=== PATIENT | male | born 1965 | race Caucasian/White ===

== ENCOUNTER 2018-12-29 05:46 | Observation (INO) | payer OTHER ==
[2018-12-29] MEDS ORDERED: ASPIRIN 81 MG CHEWABLE TAB PO ONE (05:50)
[2018-12-29] MEDS ORDERED: NS 1,000 ML IV ONE (05:50)
--- NOTE | 2018-12-29 05:50 | EDPHY ---
H & P Stated Complaint: CP Time Seen by Provider: 12/29/18 05:50 HPI/ROS: HPI CHIEF COMPLAINT: Chest pain. HISTORY OF PRESENT ILLNESS: Patient is a 53-year-old male, otherwise healthy denies any significant medical history except for remote history of hypertension with briefly on blood pressure medication for 6 months but there is no longer on this. Denies any other significant medical history reports that on Sunday he developed some muscle aches, joint pain, shoulder pain, chills , flu-like illness. He did not get his flu shot this year. However he developed chest pain left-sided describes it as a burning and pressure sensation in 1 focal area started 11:00 p.m. Last night it is now 6:00 a.m.. He states that it briefly went away however returned at 2:00 a.m. This been persistent throughout the night. He denies any productive cough or pleuritic pain. Past Medical History: Denies significant medical history except for hypertension Past Surgical History: Denies significant surgical history except for nasal surgery Social History: Denies drugs alcohol tobacco Family History: Unsure about family history as he is adopted. ROS REVIEW OF SYSTEMS: 10 Systems were reviewed and negative with the exception of the elements mentioned in the history of present illness. Exam Constitutional triage nursing summary reviewed, vital signs reviewed, awake/ alert. Eyes normal conjunctivae and sclera, EOMI, PERRLA. HENT normal inspection, atraumatic, moist mucus membranes, no epistaxis, neck supple/ no meningismus, no raccoon eyes. Respiratory clear to auscultation bilaterally, normal breath sounds, no respiratory distress, no wheezing. Cardiovascular rate normal, regular rhythm, no murmur, no edema, distal pulses normal. Gastrointestinal soft, non-tender, no rebound, no guarding, normal bowel sounds, no distension, no pulsatile mass. Genitourinary no CVA tenderness. Musculoskeletal no midline vertebral tenderness, full range of motion, no calf swelling, no tenderness of extremities, no meningismus, good pulses, neurovascularly intact. Skin pink, warm, & dry, no rash, skin atraumatic. Neurologic awake, alert and oriented x 3, AAOx3, moves all 4 extremities equally, motor intact, sensory intact, CN II-XII intact, normal cerebellar, normal vision, normal speech. Psychiatric normal mood/affect. Heme/Lymph/Immune no lymphadenopathy. Differential Diagnosis: Differential diagnosis includes but is not limited to: ACS, atypical chest pain, pneumothorax, pneumonia, pulmonary embolism, aortic dissection, congestive heart failure, tumor, musculoskeletal pain, esophageal pain, GERD, peptic ulcer disease, pancreatitis Medical Decision Making: Plan for this patient IV establishment IV fluid bolus , EKG, chest x-ray, troponin, basic labs, influenza and re-evaluate. Re-evaluation: EKG interpretation by me on record in [facility] system. Impression time of EKG 6:00 a.m. This normal sinus rhythm rate of 84 without any signs of acute ischemia. Negative influenza. Troponin noted be negative. EKG is nonischemic. Chest x-ray reviewed unremarkable. 0733: Patient received full-dose aspirin at this time and his chest pain is improved. He did have some mild pain that went down his left arm. I do not have a great explanation for his chest pain is EKG is nonischemic and his troponin is negative. However he does have a positive D-dimer We discussed CT angiogram and risk versus benefit of this. Given his chest pain and positive D-dimer will proceed with CT angiogram of the chest. Additionally his family history is unknown as he is adopted. His cardiovascular risk factors include hypertension, his age, and unknown Family history Given his left-sided chest discomfort and radiation down his left arm plan will be for hospital admission for further cardiac evaluation. Patient is currently pending a CT angiogram of the chest. 0741AM: Hospitalist service consult and they agree to admit. Dr. Chiu Patient updated, agrees for admission, and further cardiac testing. Also Agrees for CTA. 0741AM: CP free at this time. Did have some chest pain, left sided down left upper arm, now resolved. Plan for further evaluation of this. CT angiogram pending. Dr. Higginbotham to follow up CTA. Source: Patient - Personal History Current Tetanus Diphtheria and Acellular Pertussis (TDAP): No - Medical/Surgical History Hx Asthma: No Hx Chronic Respiratory Disease: No Hx Diabetes: No Hx Cardiac Disease: No Hx Renal Disease: No Hx Cirrhosis: No Hx Alcoholism: No Hx HIV/AIDS: No Hx Splenectomy or Spleen Trauma: No Other PMH: denies - Social History Smoking Status: Never smoked Constitutional: Initial Vital Signs Temperature (C) 37.4 C 12/29/18 05:47 Heart Rate 96 12/29/18 05:47 Respiratory Rate 16 12/29/18 05:47 Blood Pressure 138/80 H 12/29/18 05:47 O2 Sat (%) 96 12/29/18 05:47 O2 Delivery Mode Room Air Allergies/Adverse Reactions: No Known Allergies Allergy (Unverified 12/29/18 05:47) Home Medications: Medication Instructions Recorded Aspirin EC [Aspirin EC 81 mg (*)] 81 mg PO DAILY tab 12/29/18 Medical Decision Making - Data Points Laboratory Results: Laboratory Results 12/29/18 06:00 12/29/18 06:00 Medications Given: Discontinued Medications Aspirin (Aspirin) 324 mg PO EDNOW ONE Stop: 12/29/18 05:51 Last Admin: 12/29/18 06:03 Dose: 324 mg Sodium Chloride (Ns) 1,000 mls @ 0 mls/hr IV EDNOW ONE; Wide Open PRN Reason: Protocol Stop: 12/29/18 05:51 Last Admin: 12/29/18 06:03 Dose: 1,000 mls Point of Care Test Results: Chemistry 12/29/18 05:56 POC Troponin I 0.00 ng/mL ng/mL (0.00-0.08) Departure - Departure Disposition: [facility] Inpatient Acute Clinical Impression: Chest pain Qualifiers: Chest pain type: unspecified Qualified Code(s): R07.9 - Chest pain, unspecified Condition: Fair
[2018-12-29 06:12] LABS: PLATELET COUNT 269 10^3/uL (150-400)
[2018-12-29] MEDS ORDERED: IOPAMIDOL (ISOVUE 370) 100 ML BTL IV ONE (07:33)
--- NOTE | 2018-12-29 11:23 | PDCARST ---
CAR Stress Test Results Type of Stress Test: Martell protocol stress testing Indication: Chest pain Description of Procedure: Consent for procedure was signed, and heart auscultated (no murmur noted). Heart rate, blood pressure, and ECG (live) was monitored over course of study. Impression: Baseline ECG (lead III) with T wave inversion noted. No changes to ECG were noted. Baseline "chest discomfort" was noted prior to stress. No changes to this symtpom were noted with exercise. Small Treadmill Score was +10 (low CV risk). Conclusion: would consider outpatient MPI testing given the non specific baseline ECG changes noted (specifically lead III). No changes were noted to ECG or the patient's symptoms, with 10 minutes of exercise.
[2018-12-29 11:39] VITALS: BP 128/83
--- NOTE | 2018-12-29 12:09 | ASMTCMCOM ---
CM Note CM Note Notes: Pt is a 53 year old M who presented with acute Coronary syndrome. Pt underwent L heart cath, coronary angiography, and left centriculogram. No therapies are ordered at this time. Discharge needs TBD at this time. CM to follow. Plan: TBD Date Signed: 12/29/2018 12:08 PM Electronically Signed By:ABHISHEK Davidson
--- NOTE | 2018-12-29 13:23 | PDGENHP ---
History and Physical - Chief Complaint Chest Pain - History of Present Illness Alfa Walrdon is a 53 yo M with a remote hx of HTN who presents to [facility] for chest pain. He reports that he was awoken from sleep last evening around 11 PM due to acute onset of L sided chest pain. He describes pain as dull, radiating to L arm and jaw, no changed with exertion or rest. This pain continued which prompted his visit to the ED. He reports that his chest pain has been constant up until approx. 1 hr prior to my examination which is now resolved. He denies any associated SOB, palpitations, nausea, he does report some mild diaphoresis. Of note, he states that on Sunday he felt very fatigued with diffuse muscle aches and chills. He denies any cough but had some sore throat and nasal congestion which has since resolved. History Information - Allergies/Home Medication List Allergies/Adverse Reactions: No Known Allergies Allergy (Unverified 12/29/18 05:47) Home Medications: NK [No Known Home Meds] 12/29/18 [Last Taken Unknown] I have personally reviewed and updated: family history, medical history, social history, surgical history - Past Medical History hypertension - Surgical History Reports: no pertinent surgical hx - Family History Positive for: non-pertinent Additional family history: Adopted - Social History Smoking Status: Never smoked Review of Systems Review of Systems: ROS: 10pt was reviewed & negative except for what was stated in HPI & below Physical Exam Physical Exam: Temp Pulse Resp BP Pulse Ox 36.7 C 74 18 128/83 H 94 12/29/18 11:37 12/29/18 11:37 12/29/18 11:37 12/29/18 11:37 12/29/18 11:37 Constitutional: no apparent distress Eyes: PERRL Ears, Nose, Mouth, Throat: moist mucous membranes Cardiovascular: regular rate and rhythym Respiratory: no respiratory distress Gastrointestinal: soft, non-tender abdomen Skin: warm Musculoskeletal: full muscle strength Neurologic: AAOx3 Psychiatric: interacting appropriately Lab Data & Imaging Review 12/29/18 06:00 12/29/18 06:00 WBC 9.31 10^3/uL (3.80-9.50) 12/29/18 06:00 RBC 4.68 10^6/uL (4.40-6.38) 12/29/18 06:00 Hgb 15.2 g/dL (13.7-17.5) 12/29/18 06:00 Hct 43.7 % (40.0-51.0) 12/29/18 06:00 MCV 93.4 fL (81.5-99.8) 12/29/18 06:00 MCH 32.5 pg (27.9-34.1) 12/29/18 06:00 MCHC 34.8 g/dL (32.4-36.7) 12/29/18 06:00 RDW 13.2 % (11.5-15.2) 12/29/18 06:00 Plt Count 269 10^3/uL (150-400) 12/29/18 06:00 MPV 9.1 fL (8.7-11.7) 12/29/18 06:00 Neut % (Auto) 73.1 % (39.3-74.2) 12/29/18 06:00 Lymph % (Auto) 11.1 % (15.0-45.0) L 12/29/18 06:00 Leslie % (Auto) 14.7 % (4.5-13.0) H 12/29/18 06:00 Eos % (Auto) 0.3 % (0.6-7.6) L 12/29/18 06:00 Baso % (Auto) 0.4 % (0.3-1.7) 12/29/18 06:00 Nucleat RBC Rel Count 0.0 % (0.0-0.2) 12/29/18 06:00 Absolute Neuts (auto) 6.80 10^3/uL (1.70-6.50) H 12/29/18 06:00 Absolute Lymphs (auto) 1.03 10^3/uL (1.00-3.00) 12/29/18 06:00 Absolute Monos (auto) 1.37 10^3/uL (0.30-0.80) H 12/29/18 06:00 Absolute Eos (auto) 0.03 10^3/uL (0.03-0.40) 12/29/18 06:00 Absolute Basos (auto) 0.04 10^3/uL (0.02-0.10) 12/29/18 06:00 Absolute Nucleated RBC 0.00 10^3/uL (0-0.01) 12/29/18 06:00 Immature Gran % 0.4 % (0.0-1.1) 12/29/18 06:00 Immature Gran # 0.04 10^3/uL (0.00-0.10) 12/29/18 06:00 D-Dimer 0.89 ug/mLFEU (0.00-0.50) H 12/29/18 06:00 Sodium 135 mEq/L (135-145) 12/29/18 06:00 Potassium 4.2 mEq/L (3.5-5.2) 12/29/18 06:00 Chloride 100 mEq/L (97-110) 12/29/18 06:00 Carbon Dioxide 26 mEq/l (22-31) 12/29/18 06:00 Anion Gap 9 mEq/L (6-14) 12/29/18 06:00 BUN 12 mg/dL (7-23) 12/29/18 06:00 Creatinine 0.8 mg/dL (0.7-1.3) 12/29/18 06:00 Estimated GFR > 60 12/29/18 06:00 Glucose 113 mg/dL (70-100) H 12/29/18 06:00 Calcium 9.0 mg/dL (8.5-10.4) 12/29/18 06:00 POC Troponin I 0.00 ng/mL (0.00-0.08) 12/29/18 05:56 NT-Pro-B Natriuret Pep 122 pg/mL (0-125) 12/29/18 06:00 Nasal Influenza A PCR NEGATIVE FOR FLU A (NEGATIVE) 12/29/18 06:10 Nasal Influenza B PCR NEGATIVE FOR FLU B (NEGATIVE) 12/29/18 06:10 Assessment & Plan Assessment: Chest pain (Acute) - Acute onset overnight with radiation to neck/L arm - No hx of cardiac disease including CAD, CHF - Initial w/u with Trop negative, EKG with TWI in lead III - D-dimer elevated on admission, CTA negative for PE - S/p ASA 325 mg in ED - Will proceed with Treadmill stress to further evaluate HTN - Reports was on BP meds >6 months ago which were d/c - BP WNL on admission - Continue to monitor FEN: NPO for stress test DVT PPx: Low risk, SCDs Code: FULL Dispo: Admit to Observation
--- NOTE | 2018-12-29 13:31 | PDDCSUM ---
Discharge Summary Discharge Summary: Date of Admission/Discharge: 12/29/2018 Consults: Cardiology Procedures: Treadmill Stress Test Followup: PCP for Nuclear Stress Test Hospital Course Problem List: Chest pain (Acute) - Acute onset overnight with radiation to neck/L arm - No hx of cardiac disease including CAD, CHF - Initial w/u with Trop negative, EKG with TWI in lead III - D-dimer elevated on admission, CTA negative for PE - S/p ASA 325 mg in ED - Treadmill stress performed which did not show any acute ischemic changes, discussed with reviewing dentures lab technician, Dr. Zhao, who recommends outpatient nuclear stress test to further evaluate baseline TWI in lead III. Discussed with patient and about performing MPS as IP vs. OP they opted to followup as outpatient to have test performed - Recommended to continue ASA 81 mg qd in the interim HTN - Reports was on BP meds >6 months ago which were d/c - BP WNL on admission, no need for BP medications at this time Time spent on discharge was >35 minutes with >50% of time spent on patient education and counseling.
--- NOTE | 2018-12-29 13:53 | ASMTCMCOM ---
CM Note CM Note Notes: Please disregard note from this technical writer and editor from 12/29/18 at 12:08, it was written on wrong patient. Date Signed: 12/29/2018 01:53 PM Electronically Signed By:ABHISHEK Davidson
--- NOTE | 2018-12-29 14:00 | ASDISCHSUM ---
Discharge Information Plan Status:Home with No Needs Medically Cleared to Leave: Discharge Date: D/C Disposition:Home, Routine, Self-Care ADT D/C Disposition: Projected Discharge Date:12/29/2018 12:00 AM Transportation at D/C:Family Discharge Delay Reason: Follow-Up Date:12/29/2018 12:00 AM Discharge Slot: Final Diagnosis: Placement Information Patient Contact Information Contact Name:ENRIKE Relationship: Address:[address] Home Phone: City:[facility] Phone: State/Zip Code:[place] [address] Email: Financial Information Financial Class:[employer] [facility] Primary Plan Number:[id number] Secondary Plan Desc: Secondary Plan Number: Assessment Information [facility] CM Progress Note CM Note CM Note Notes: Pt is a 53 year old M who presented with acute Coronary syndrome. Pt underwent L heart cath, coronary angiography, and left centriculogram. No therapies are ordered at this time. Discharge needs TBD at this time. CM to follow. Plan: TBD Date Signed: 12/29/2018 12:08 PM Electronically Signed By:ABHISHEK Davidson [facility] CM Progress Note CM Note CM Note Notes: Please disregard note from this chief writer from 12/29/18 at 12:08, it was written on wrong patient. Date Signed: 12/29/2018 01:53 PM Electronically Signed By:ABHISHEK Davidson Case Management Discharge Plan Note Case Management Discharge Discharge Order Complete? Answers: Yes Patient to Obtain Answers: via Family Medications Transportation Arranged Answers: Family/Friends Discharge Comments Notes: Pt is being discharged independently. CM spoke with RN. Family to transport. Date Signed: 12/29/2018 01:59 PM Electronically Signed By:ABHISHEK Davidson Intervention Information
--- NOTE | 2018-12-29 14:01 | ASMTLACE ---
LACE Length of stay for Answers: Less than 1 day current admission Acuity / Level of Answers: No Care: Did the patient have an inpatient admission? Comorbidities - select Answers: Other Notes: HTN all that apply # of Emergency department Answers: 0 visits in the last 6 months Score: 1 Date Signed: 12/29/2018 02:00 PM Electronically Signed By:ABHISHEK Davidson
[2018-12-30] MEDS ORDERED: ASPIRIN EC 81 MG TAB PO SCH (09:00)
--- NOTE | 2019-01-02 07:53 | CPEKG ---
Test Reason : OPEN Blood Pressure : / mmHG Vent. Rate : 084 BPM Atrial Rate : 085 BPM P-R Int : 188 ms QRS Dur : 085 ms QT Int : 347 ms P-R-T Axes : 044 051 018 degrees QTc Int : 411 ms Sinus rhythm Confirmed by Eh De Leon ([id number]) on 01/02/2019 7:52:38 AM Referred By: Eh De Leon Confirmed By:Eh De Leon
== END 2018-12-29 14:19 | disposition home or self-care (01) ==
LOC: F2W 08:07
PROVIDERS: ADMIT Internal Medicine; ATTEND Internal Medicine
DX: R07.9 Chest pain, unspecified (principal); E86.9 Volume depletion, unspecified; I10 Essential (primary) hypertension
CPT/HCPCS: 71045; 71275; 93017; G0378; 84484-ER; Q9967